=== PATIENT | female | born 2000 | race African-American/Black ===

== ENCOUNTER 2023-11-25 18:27 | Emergency (ER) | payer MEDICAID, OTHER ==
[~2023-11-25] VITALS: Ht 165.1 cm; Wt 118.2 kg
[2023-11-25 18:41] VITALS: TEMP 98
[2023-11-25] MEDS ORDERED: ALBU18HF12 IH (18:42)
[2023-11-25 22:00] VITALS: BP 130/75; PULSE 78; RESP 18
== END 2023-11-26 02:15 | disposition home or self-care (01) ==
LOC: EMS 18:44
DX: T83.39XA Other mechanical complication of intrauterine contraceptive device, initial encounter (principal); J45.909 Unspecified asthma, uncomplicated; Z98.890 Other specified postprocedural states
CPT/HCPCS: 76856; 99284; Z7502